=== PATIENT | male | born 1950 | race Caucasian/White ===

== ENCOUNTER 2016-08-18 08:22 | Emergency (ER) | payer OTHER, BC ==
[~2016-08-18] VITALS: Ht 175.3 cm; Wt 104.3 kg
[2016-08-18 10:51] LABS: CHLORIDE 99 mEq/L (99-109)
[2016-08-18 10:52] LABS: POTASSIUM 4.4 mEq/L (3.7-5.4); SODIUM 138 mEq/L (136-147)
[2016-08-18 10:54] LABS: GLUCOSE 140 mg/dL (70-99)
[2016-08-18 10:55] LABS: ANION GAP 17 MEQ/L (2-14)
[2016-08-18 10:56] LABS: TOTAL BILIRUBIN 0.7 mg/dL (0.0-1.0)
[2016-08-18 10:57] LABS: ALKALINE PHOSPHATASE 113 IU/L (3-129); GFR ESTIMATE (CALCULATED) > 59 mL/min/
[2016-08-18 10:59] LABS: UREA NITROGEN (BUN) 8 mg/dL (9-23)
[2016-08-18 11:02] LABS: TROP-I INTERPRETATION NEGATIVE; TROPONIN-I < 0.01 ng/mL (0.0-0.30)
[2016-08-18 11:27] VITALS: BP 132/78
[2016-08-18 11:50] LABS: EOSINOPHIL (%) 0.5 % (0-5); HEMATOCRIT 39.5 % (38.0-50.0); IMMATURE GRANULOCYTE (%) 0.2 % (0.0-0.7); INSTRUMENT ABS NEUTROPHIL CT 3.1 K/uL; LYMPHOCYTE COUNT 2.2 K/uL (1.0-2.8); MCH 33.7 PG (29.0-34.0); MCHC 35.4 G/DL (30.0-36.0); MEAN PLAT.VOLUME 9.3 uM^3 (9.0-12.4); MONOCYTE (%) 6.1 % (3-12); MONOCYTE COUNT 0.3 K/uL (0-0.8); NEUTROPHIL (%) 54.3 % (45-76); NEUTROPHIL COUNT 3.1 K/uL (1.8-6.4); PLATELET COUNT 153 K/uL (156-360); RBC DIS.WIDTH-CV 12.2 % (11.8-14.6); RBC DIS.WIDTH-SD 42.5 % (39-53); RED BLOOD COUNT 4.16 M/uL (4.00-5.50); WHITE BLOOD COUNT 5.6 K/uL (4.1-10.2)
[2016-08-18] MEDS ORDERED: PREDNISONE50 MG PO (14:22)
[2016-08-18] MEDS ORDERED: VENTOLIN HFA18 GM IH (14:22)
== END 2016-08-18 14:52 | disposition home or self-care (01) ==
LOC: EME 08:22
PROVIDERS: Emergency Medicine
DX: J40 Bronchitis, not specified as acute or chronic (principal); J45.909 Unspecified asthma, uncomplicated
CPT/HCPCS: 71020; 71260; 80053; 84484; 85025; 94640; 99281; 99285; J2930